=== PATIENT | female | born 1970 | race Caucasian/White ===

== ENCOUNTER 2021-08-11 17:30 | Emergency (ER) | payer OTHER ==
[~2021-08-11 17:30] MED LIST: ESTRADIOL1 MG PO; IBU800 MG PO; KEFLEX CAP 500500 MG PO; LORTAB 5-325 M1 EACH PO; NEURONTIN800 MG PO; OMEPRAZOLE40 MG PO; PERCOCET 5-3251 EACH PO; PHENERGAN 12.12.5 M1 PO; SENNA8.6 MG PO; SEROQUEL200 MG PO; SINGULAIR10 MG PO; VITAMIN C500 M4 PO; VITAMIN D31250 MCG PO; WIXELA 250-501 EACH INH; ZANAFLEX4 MG PO
[2021-08-11 18:33] LABS: HEMOGLOBIN 11.2 gm/dl (12.3-15.3); RED BLOOD COUNT 3.41 M/UL (4.00-5.10); WHITE BLOOD COUNT 9.1 K/UL (4.5-11.0)
[2021-08-11 18:52] LABS: BUN/CREATININE RATIO 10 (0-10)
== END 2021-08-11 19:12 | disposition home or self-care (01) ==
LOC: ER1 17:30
PROVIDERS: Physician Assistant Medical
DX: M79.661 Pain in right lower leg (principal); M79.662 Pain in left lower leg; J45.909 Unspecified asthma, uncomplicated; F17.210 Nicotine dependence, cigarettes, uncomplicated; Z90.710 Acquired absence of both cervix and uterus; Z88.5 Allergy status to narcotic agent; Z88.8 Allergy status to other drugs, medicaments and biological substances
CPT/HCPCS: 71045; 80053; 82550; 82553; 83874; 83880; 84484; 85025; 85379; 85610; 93005; 99284

== ENCOUNTER → 2021-08-20 | Outpatient (CLI) | payer OTHER | LOC: KOH-I 11:58 | DX: S82.832A Other fracture of upper and lower end of left fibula, initial encounter for closed fracture (principal); S82.831A Other fracture of upper and lower end of right fibula, initial encounter for closed fracture | CPT/HCPCS: 73610; 73630 ==

== ENCOUNTER → 2022-04-08 | Outpatient (CLI) | payer OTHER | LOC: KOH-I 15:12 | DX: M25.572 Pain in left ankle and joints of left foot (principal); M25.571 Pain in right ankle and joints of right foot; Z96.661 Presence of right artificial ankle joint; M19.072 Primary osteoarthritis, left ankle and foot | CPT/HCPCS: 73610 ==

== ENCOUNTER → 2022-04-16 | Outpatient (CLI) | payer OTHER ==
[~2022-04-16] MED LIST changes: +BUMETANIDE0.5 MG PO; +DULERA 200 MCG8.8 GM INH; +IPRAT-ALBUT 0.5-3 ML INH; +ONDANSETRON HCL8 MG PO; +PREMARIN1.25 MG PO; +VITAMIN B12 PO; +VITAMIN D21250 MCG PO; +XANAX1 MG PO; +XYZAL5 MG PO
[2022-04-16 14:43] LABS: HEMOGLOBIN 12.6 gm/dl (12.3-15.3); RED BLOOD COUNT 3.93 M/UL (4.00-5.10); WHITE BLOOD COUNT 11.8 K/UL (4.5-11.0)
[2022-04-16 15:43] LABS: BUN/CREATININE RATIO 11 (0-10)
== END ==
LOC: OPSV2 12:30
PROVIDERS: Anesthesiology; Podiatrist Foot & Ankle Surgery
DX: Z01.812 Encounter for preprocedural laboratory examination (principal); Z88.5 Allergy status to narcotic agent; Z88.1 Allergy status to other antibiotic agents; Z88.8 Allergy status to other drugs, medicaments and biological substances
CPT/HCPCS: 80048; 85027

== ENCOUNTER → 2022-07-11 | Outpatient (CLI) | payer OTHER | LOC: KOH-I 12:58 | DX: M50.11 Cervical disc disorder with radiculopathy, high cervical region (principal); M48.02 Spinal stenosis, cervical region | CPT/HCPCS: 72141 ==